=== PATIENT | female | born 1985 | race Caucasian/White ===

== ENCOUNTER 2017-06-05 14:22 | Emergency (ER) | payer BC ==
[~2017-06-05] VITALS: Ht 157.5 cm; Wt 70.1 kg
[2017-06-05 14:28] VITALS: TEMP 37.4; Ht 157.5 cm; Wt 70.1 kg
[2017-06-05] MEDS ORDERED: SODIUM CHLORIDE 0.9% 1000ML 1,000 ML IV STA (14:49)
[2017-06-05] MEDS ORDERED: ONDANSETRON INJ 2 MG/ML 2 ML VIAL IV STA (14:49)
[2017-06-05] MEDS ORDERED: VENL150C PO (14:57)
[2017-06-05] MEDS ORDERED: ALPR-411 PO (14:57)
[2017-06-05] MEDS ORDERED: ACET-1311 PO (14:58)
[2017-06-05 15:18] LABS: BASO % 0.2 %; BASO ABS # 0.03 K/uL (0-0.2); EOS % 1.5 %; EOS ABS # 0.18 K/uL (0-0.5); HEMATOCRIT 40.8 % (37-47); IG# 0.02 K/uL (0.00-0.02); LYMPH ABS # 3.68 K/uL (1.2-3.4); MEAN CELL VOLUME 88.9 fL (80-100); MEAN CORPUSCULAR HEMOGLOBIN 30.5 pg (25-34); MEAN CORPUSCULAR HGB CONC 34.3 g/dl (32-36); MEAN PLATELET VOLUME 10.8 fL (7.4-10.4); MONO % 5.6 %; MONO ABS # 0.68 K/uL (0.11-0.59); NEUT % 62.5 %; NEUT ABS # 7.66 K/uL (1.4-6.5); PLATELET COUNT 292 K/uL (130-400); RED CELL DISTRIBUTION WIDTH CV 12.9 % (11.5-14.5); WHITE BLOOD COUNT 12.25 K/uL (4.8-10.8)
--- NOTE | 2017-06-05 15:36 | DIAGNOSTIC IMAGING REPORT ---
ABDOMEN AND PELVIS CT WITHOUT CONTRAST CT DOSE: 476.41 mGycm HISTORY: Acute generalized abdominal pain with possible ventral abdominal wall hernia sent by [facility] for CT gfor possible ventral hernia TECHNIQUE: Multiaxial CT images of the abdomen and pelvis were performed without contrast. A dose lowering technique was utilized adhering to the principles of ALARA. COMPARISON STUDY: None. FINDINGS: Mild dependent subsegmental bibasilar atelectasis. No pneumatosis or pneumoperitoneum. The imaged inferior cardiac chambers are unremarkable. Prior cholecystectomy. The liver, spleen, pancreas and adrenal glands are within normal limits. Kidneys, ureters and urinary bladder are within normal limits. Uterus and adnexa are unremarkable. Surgical clips are seen within the left hemipelvis. Aorta is normal in course and caliber. No bulky adenopathy. No bowel obstruction or focal bowel wall thickening. Nondistention of the rectosigmoid. Prior appendectomy. Diastases recti is noted with small fat filled periumbilical hernia, diastases 1.0 cm. Additionally, there is a small ventral abdominal wall supra umbilical hernia, diastases 10 mm on image 189 series 3. Bones appear intact. IMPRESSION: 1. No acute intra-abdominal or intrapelvic abnormality identified. 2. Small fat filled periumbilical and ventral abdominal wall supraumbilical hernias are noted along with mild diastases recti. 3. Prior cholecystectomy and appendectomy. Electronically signed by: Ephraim Vincent M.D. 06/05/2017 3:35 PM Dictated Date/Time: 06/05/2017 3:29 PM
[2017-06-05 15:39] LABS: CREATININE 0.69 mg/dl (0.60-1.20); POTASSIUM 3.5 mmol/L (3.5-5.1)
[2017-06-05 15:41] LABS: TOTAL PROTEIN 8.5 gm/dl (6.4-8.2)
--- NOTE | 2017-06-05 15:51 | DIAGNOSTIC IMAGING REPORT ---
CHEST ONE VIEW PORTABLE CLINICAL HISTORY: Pain, radiating to the abdomen. COMPARISON STUDY: No previous studies for comparison. FINDINGS: The cardiac and mediastinal contours are normal. There is no evidence of focal pulmonary consolidation. There is no evidence of failure. No pleural effusions are visualized.[ No free intraperitoneal air is visualized. IMPRESSION: No active disease in the chest. Electronically signed by: Edwin Brown M.D. 06/05/2017 3:50 PM Dictated Date/Time: 06/05/2017 3:48 PM
[2017-06-05] MEDS ORDERED: GI COCKTAIL PO STA (16:02)
[2017-06-05] MEDS ORDERED: PANTOprazole SOD 40 MG TAB PO STA (16:02)
[2017-06-05] MEDS ORDERED: LIDOCAINE HCL 2% VISC SOLN 20 ML UDC ONE (16:11)
[2017-06-05] MEDS ORDERED: ALUMINUM/MAGNESIUM SUSP 30 ML UDC ONE (16:11)
[2017-06-05] MEDS ORDERED: OMEP40CA41 PO (16:18)
[2017-06-05 16:21] VITALS: BP 111/84; PULSE 110; O2SAT 98
--- NOTE | 2017-06-05 16:44 | EMERGENCY ROOM VISIT NOTE ---
History Report prepared by Georgianaibavinash: Julio Avalos Under the Supervision of: Dr. Evangelista Mathew D.O. First contact with patient: 14:43 Chief Complaint: ABDOMINAL PAIN Stated Complaint: BULGE IN STOMACH, LOW GRADE FEVER History of Present Illness The patient is a 31 year old female who presents to the Emergency Room with complaints of a constant abdominal "bulge" beginning a few months ago. She also complains nausea, irregular bowel movements, increased belching, and low-grade fever. The patient was seen at [facility] shortly prior to arrival and was referred to the ED for further evaluation. She states that her "bulge" is more pronounced while standing. She states that she has had some lower abdominal pain , as well as back pain. The patient denies vomiting, or bloody stool. Source of History: patient Onset: A few months ago Position: abdomen Quality: other ("bulge") Timing: constant Associated Symptoms: + fevers (low-grade), + nausea, No vomiting, No hematochezia Note: The patient also complains irregular bowel movements and increased belching. Review of Systems See HPI for pertinent positives & negatives. A total of 10 systems reviewed and were otherwise negative. Past Medical & Surgical Medical Problems: (1) Depression Family History No pertinent family history stated. Social History Smoking Status: Current Every Day Smoker Alcohol Use: other (rarely) Current/Historical Medications Scheduled Omeprazole (Prilosec), 40 MG PO DAILY Venlafaxine Hcl (Effexor Xr), 150 MG PO DAILY Scheduled PRN Acetaminophen (Tylenol), 650 MG PO DAILY PRN for Pain or Fever Alprazolam (Xanax), 0.5 MG PO DAILY PRN for Anxiety Allergies Coded Allergies: Amoxicillin (Unverified Allergy, Severe, HIVES, 06/05/17) Physical Exam Vital Signs Date Time Temp Pulse Resp B/P (MAP) Pulse Ox O2 Delivery O2 Flow Rate FiO2 06/05/17 16:21 110 111/84 98 Room Air 06/05/17 14:28 37.4 86 18 132/81 97 Room Air Physical Exam GENERAL: Patient is awake, alert, and in no acute distress. Patient is resting comfortably and showing no signs of anxiety EYES: The conjunctivae are clear. The pupils are round and reactive. EARS, NOSE, MOUTH AND THROAT: The nose is without any evidence of any deformity. Mucous membranes are moist tongue is midline NECK: The neck is nontender and supple. RESPIRATORY: Normal respiratory effort is noted there is no evidence of wheezing rhonchi or rales CARDIOVASCULAR: Regular rate and rhythm noted there no murmurs rubs or gallops normal S1 normal S2 GASTROINTESTINAL: Mildly distended but soft. No guarding or rigidity appreciated. No definite ventral wall hernia appreciated. BACK: No midline tenderness or or step-off noted range of motion in flexion extension as well as rotation no signs of muscle spasm noted MUSCULOSKELETAL/EXTREMITIES: There is no evidence of gross deformity full range of motion is noted in the hips and shoulders SKIN: There is no obvious evidence of any rash. There are no petechiae, pallor or cyanosis noted. NEUROLOGIC: Patient is awake alert and oriented x3. Medical Decision & Procedures ER Provider Diagnostic Interpretation: Radiology results as stated below per my review and radiologist interpretation: CHEST ONE VIEW PORTABLE FINDINGS: The cardiac and mediastinal contours are normal. There is no evidence of focal pulmonary consolidation. There is no evidence of failure. No pleural effusions are visualized.[ No free intraperitoneal air is visualized. IMPRESSION: No active disease in the chest. Electronically signed by: Edwin Brown M.D. 06/05/2017 3:50 PM [address] AND PELVIS CT WITHOUT CONTRAST FINDINGS: Mild dependent subsegmental bibasilar atelectasis. No pneumatosis or pneumoperitoneum. The imaged inferior cardiac chambers are unremarkable. Prior cholecystectomy. The liver, spleen, pancreas and adrenal glands are within normal limits. Kidneys, ureters and urinary bladder are within normal limits. Uterus and adnexa are unremarkable. Surgical clips are seen within the left hemipelvis. Aorta is normal in course and caliber. No bulky adenopathy. No bowel obstruction or focal bowel wall thickening. Nondistention of the rectosigmoid. Prior appendectomy. Diastases recti is noted with small fat filled periumbilical hernia, diastases 1.0 cm. Additionally, there is a small ventral abdominal wall supra umbilical hernia, diastases 10 mm on image 189 series 3. Bones appear intact. IMPRESSION: 1. No acute intra-abdominal or intrapelvic abnormality identified. 2. Small fat filled periumbilical and ventral abdominal wall supraumbilical hernias are noted along with mild diastases recti. 3. Prior cholecystectomy and appendectomy. Electronically signed by: Ephraim Vincent M.D. 06/05/2017 3:35 PM Laboratory Results 06/05/17 15:05 Red Blood Count 4.59, Mean Corpuscular Volume 88.9, Mean Corpuscular Hemoglobin 30.5, Mean Corpuscular Hemoglobin Concent 34.3, Mean Platelet Volume 10.8, Neutrophils (%) (Auto) 62.5, Lymphocytes (%) (Auto) 30.0, Monocytes (%) (Auto) 5.6, Eosinophils (%) (Auto) 1.5, Basophils (%) (Auto) 0.2, Neutrophils # (Auto) 7.66, Lymphocytes # (Auto) 3.68, Monocytes # (Auto) 0.68, Eosinophils # (Auto) 0.18, Basophils # (Auto) 0.03 06/05/17 15:05 Test 06/05/17 15:05 06/05/17 15:20 White Blood Count 12.25 K/uL (4.8-10.8) Red Blood Count 4.59 M/uL (4.2-5.4) Hemoglobin 14.0 g/dL (12.0-16.0) Hematocrit 40.8 % (37-47) Mean Corpuscular Volume 88.9 fL (80-100) Mean Corpuscular Hemoglobin 30.5 pg (25-34) Mean Corpuscular Hemoglobin Concent 34.3 g/dl (32-36) Platelet Count 292 K/uL (130-400) Mean Platelet Volume 10.8 fL (7.4-10.4) Neutrophils (%) (Auto) 62.5 % Lymphocytes (%) (Auto) 30.0 % Monocytes (%) (Auto) 5.6 % Eosinophils (%) (Auto) 1.5 % Basophils (%) (Auto) 0.2 % Neutrophils # (Auto) 7.66 K/uL (1.4-6.5) Lymphocytes # (Auto) 3.68 K/uL (1.2-3.4) Monocytes # (Auto) 0.68 K/uL (0.11-0.59) Eosinophils # (Auto) 0.18 K/uL (0-0.5) Basophils # (Auto) 0.03 K/uL (0-0.2) RDW Standard Deviation 42.0 fL (36.4-46.3) RDW Coefficient of Variation 12.9 % (11.5-14.5) Immature Granulocyte % (Auto) 0.2 % Immature Granulocyte # (Auto) 0.02 K/uL (0.00-0.02) Anion Gap 4.0 mmol/L (3-11) Est Creatinine Clear Calc Drug Dose 108.4 ml/min Estimated GFR () 134.4 Estimated GFR (Non- 116.0 BUN/Creatinine Ratio 8.6 (10-20) Calcium Level 9.0 mg/dl (8.5-10.1) Total Bilirubin 0.6 mg/dl (0.2-1) Direct Bilirubin 0.1 mg/dl (0-0.2) Aspartate Amino Transf (AST/SGOT) 13 U/L (15-37) Alanine Aminotransferase (ALT/SGPT) 22 U/L (12-78) Alkaline Phosphatase 124 U/L (45-117) Total Protein 8.5 gm/dl (6.4-8.2) Albumin 4.0 gm/dl (3.4-5.0) Lipase 134 U/L (73-393) Human Chorionic Gonadotropin, Qual NEG (NEG) Urine Color YELLOW Urine Appearance CLEAR (CLEAR) Urine pH 7.0 (4.5-7.5) Urine Specific [place] 1.006 (1.000-1.030) Urine Protein NEG (NEG) Urine Glucose (UA) NEG (NEG) Urine Ketones NEG (NEG) Urine Occult Blood NEG (NEG) Urine Nitrite NEG (NEG) Urine Bilirubin NEG (NEG) Urine Urobilinogen NEG (NEG) Urine Leukocyte Esterase NEG (NEG) Laboratory results per my review. Medications Administered Medications (Trade) Dose Ordered Sig/Maria Elena Route Start Time Stop Time Status Last Admin Dose Admin Sodium Chloride 1,000 ml @ 999 mls/hr Q1H1M STAT IV 06/05/17 14:49 06/05/17 15:49 DC 06/05/17 15:43 999 MLS/HR Pantoprazole Sodium (Protonix Tab) 40 mg NOW STAT PO 06/05/17 16:02 06/05/17 16:03 DC 06/05/17 16:20 40 MG Miscellaneous Medication (Gi Cocktail) 24 ml ONE STAT PO 06/05/17 16:02 06/05/17 16:03 DC 06/05/17 16:20 24 ML ED Course 1446: The patient was evaluated in room B2. A complete history and physical examination were performed. 1449: Ordered Zofran Inj 4 mg IV, NSS 1,000 ml @ 999 mls/hr IV. 1602: Ordered GI Cocktail 24 mL PO, Protonix Tab 40 mg PO. 1635: Upon reevaluation, the patient is resting comfortably. I discussed the results and treatment plan with her. She verbalized agreement of the treatment plan. The patient was discharged home. Medical Decision Differential diagnosis: Etiologies such as appendicitis, diverticulitis, PUD, biliary pathology, UTI, pancreatitis, obstruction, mesenteric ischemia, aortic pathology, infections, inflammatory bowel disease, renal colic, as well as others were entertained. Nursing notes reviewed. The patient is a 31-year-old female who presented to the emergency department for evaluation of diffuse abdominal tenderness. The patient was seen at the [facility] and sent to the emergency department because of her abdominal pain. She did have a bulging area in her ventral abdominal wall. No definite hernia was noted on physical exam or on CAT scan but she was found to have defects in the abdominal wall with fat-containing hernias at this time. The patient's physical exam was not consistent with an acute surgical abdomen. She had a low-grade fever and her white blood cell count was mildly elevated but I do feel this is likely secondary to some other source because the patient had a low-grade fever. I discussed patient's laboratory and radiographic studies with her. She was encouraged to drink plenty of clear liquids and continue all medications as prescribed. She was also encouraged to return to the emergency department immediately if symptoms change worsen or the need arise. Medication Reconcilliation Current Medication List: was personally reviewed by me Blood Pressure Screening Patient's blood pressure: Elevated blood pressure Blood pressure disposition: Elevated BP felt to be situational Impression Primary Impression: Abdominal pain Scribe Attestation The scribe's documentation has been prepared under my direction and personally reviewed by me in its entirety. I confirm that the note above accurately reflects all work, treatment, procedures, and medical decision making performed by me. Departure Information Dispostion Home / Self-Care Prescriptions Omeprazole (PRILOSEC) 40 Mg Cap 40 MG PO DAILY, #30 CAP Prov: Evangelista Mathew, 06/05/17 Referrals Gavino Leslie M.D. (PCP) Forms Call Back Authorization, HOME CARE DOCUMENTATION FORM, IMPORTANT VISIT INFORMATION Patient Instructions ED Abdominal Pain Unkn Cause, [facility] Additional Instructions Call your family doctor to schedule a follow-up appointment. Drink plenty of clear liquids. Continue using Tylenol as directed for pain. Considering using Maalox or Mylanta as directed for symptomatic relief. Problem Qualifiers Primary Impression: Abdominal pain Abdominal location: generalized Qualified Codes: R10.84 - Generalized abdominal pain
== END 2017-06-05 16:39 | disposition home or self-care (01) ==
LOC: C.EDB 14:24
DX: R10.84 Generalized abdominal pain (principal); F32.9 Major depressive disorder, single episode, unspecified; F17.210 Nicotine dependence, cigarettes, uncomplicated; Z79.899 Other long term (current) drug therapy; Z88.1 Allergy status to other antibiotic agents